=== PATIENT | male | born 1980 | race Caucasian/White ===

== ENCOUNTER → 2018-01-08 | Outpatient (REF) ==
--- NOTE | 2018-01-08 14:56 | Diagnostic Imaging Report ---
INDICATION: Back pain. TIME OF EXAM: 2:03 p.m. Curvature and alignment of the lumbar spine is normal. Vertebral body heights are well maintained. Disc spaces are preserved. There is minimal anterior spurring at L4-L5 level. No fracture is seen. IMPRESSION: Minimal lower lumbar spondylosis. No acute bony abnormality is detected. Dictated by: Dictated on workstation # [id number]
== END | disposition home or self-care (01) ==
LOC: OCC 13:19
PROVIDERS: ATTEND Family Medicine
CPT/HCPCS: 72100